=== PATIENT | male | born 1940 | race Hispanic/Latino ===

== ENCOUNTER 2018-06-17 16:55 | Inpatient (IN) | payer OTHER ==
[~2018-06-17] VITALS: Ht 188 cm; Wt 88.8 kg
[~2018-06-17 16:55] MED LIST: BACL10TA PO; Simethicone PO
[2018-06-17] MEDS ORDERED: ONDANSETRON HCL 4 MG/2 ML VIAL ONE ×2 (17:23→20:06)
[2018-06-17] MEDS ORDERED: SODIUM CHLORIDE 0.9% 1000ML 1,000 ML IV ONE (17:24)
[2018-06-17 17:27] LABS: BASOPHILS % (AUTO) 0.3 % (0.0-5.0); EOSINOPHILS % (AUTO) 1.3 % (0.0-8.0); HEMATOCRIT 48.1 % (42-54); LYMPHOCYTES % (AUTO) 13.2 % (21.0-51.0); MEAN CORPUSCULAR VOLUME 93.9 fL (79-99); MONOCYTES % (AUTO) 8.7 % (3.0-13.0); NEUTROPHILS % (AUTO) 76.5 % (40.0-77.0); NUCLEATED RED BLOOD CELLS 0.1 % (0.0-0.19); PLATELET COUNT (AUTO) 141 K/uL (130-400); RED BLOOD CELL COUNT(AUTO) 5.13 MIL/uL (4.50-6.20); RED CELL DISTRIBUTION WIDTH 13.7 % (11.0-15.5); WHITE BLOOD COUNT (AUTO) 11.3 K/uL (4.8-10.8)
[2018-06-17 17:36] LABS: CREATININE 1.3 mg/dL (0.5-1.5); POTASSIUM 4.5 mmol/L (3.5-5.1)
[2018-06-17 17:40] LABS: ALBUMIN 4.1 g/dL (3.5-5.0); BILIRUBIN,TOTAL 0.7 mg/dL (0.2-1.0)
[2018-06-17] MEDS ORDERED: IOHEXOL-350 75 ML VIAL IV ONE (18:27)
[2018-06-17] MEDS: SODIUM CHLORIDE 0.9% 1000ML 1,000 ML IV SCH (19:59)
[2018-06-17] MEDS ORDERED: ACETAMINOPHEN 650 MG SUPPOSITORY RC PRN (20:00)
[2018-06-17] MEDS ORDERED: ONDANSETRON HCL 4 MG/2 ML VIAL IV PRN (20:00)
[2018-06-17] MEDS ORDERED: MORPHINE SULFATE 4 MG/1ML SYG ONE (20:06)
[2018-06-17 20:24] LABS: APPEARANCE,URINE Clear (CLEAR); BILIRUBIN,URINE Negative (NEGATIVE); COLOR,URINE Yellow (YELLOW); GLUCOSE, URINE (UA) Negative (NEGATIVE); KETONES,URINE Negative (NEGATIVE); LEUKOCYTE ESTERASE ,URINE Negative (NEGATIVE); NITRATE,URINE Negative (NEGATIVE); OCCULT BLOOD,URINE Negative (NEGATIVE); PROTEIN,URINE Negative (NEGATIVE)
[2018-06-17] MEDS ORDERED: BENZOCAINE/MENTH/CETYLPYRD CL 1 EACH LOZENGE MM PRN (21:15)
[2018-06-17] MEDS ORDERED: LIDOCAINE HCL 2% VISCOUS 15 ML UDCUP ONE (23:11)
[2018-06-18 01:21] VITALS: BP 140/65
[2018-06-18 04:28] LABS: BASOPHILS % (AUTO) 0.4 % (0.0-5.0); EOSINOPHILS % (AUTO) 1.3 % (0.0-8.0); HEMATOCRIT 39.7 % (42-54); LYMPHOCYTES % (AUTO) 16.7 % (21.0-51.0); MEAN CORPUSCULAR HEMOGLOBIN 31.9 pg (27.0-33.0); MEAN CORPUSCULAR HGB CONC 33.5 g/dL (32.0-36.0); MEAN CORPUSCULAR VOLUME 95.1 fL (79-99); MONOCYTES % (AUTO) 12.5 % (3.0-13.0); NEUTROPHILS % (AUTO) 69.1 % (40.0-77.0); NUCLEATED RED BLOOD CELLS 0.1 % (0.0-0.19); PLATELET COUNT (AUTO) 116 K/uL (130-400); RED BLOOD CELL COUNT(AUTO) 4.17 MIL/uL (4.50-6.20); RED CELL DISTRIBUTION WIDTH 13.8 % (11.0-15.5); WHITE BLOOD COUNT (AUTO) 8.2 K/uL (4.8-10.8)
[2018-06-18 04:43] LABS: INR 1.01 (0.85-1.15); PARTIAL THROMBOPLASTIN TIME 28.2 SEC (26.3-35.5); PROTHROMBIN TIME 10.6 SEC (9.6-11.6)
[2018-06-18 04:48] VITALS: BP 130/88
[2018-06-18 04:49] LABS: ALBUMIN 3.1 g/dL (3.5-5.0); BILIRUBIN,TOTAL 0.8 mg/dL (0.2-1.0); CREATININE 1.1 mg/dL (0.5-1.5); POTASSIUM 4.3 mmol/L (3.5-5.1); TOTAL PROTEIN, SERUM 6.3 g/dL (6.0-8.3)
[2018-06-18] MEDS: SODIUM CHLORIDE 0.9% 1000ML 1,000 ML IV SCH ×2 (06:17→15:59)
[2018-06-18 08:00] VITALS: BP 124/71
[2018-06-18] MEDS: FAMOTIDINE/PF 20 MG/2 ML VIAL IV SCH (08:26)
[2018-06-18 11:00] VITALS: BP 119/73
[2018-06-18] MEDS ORDERED: MORPHINE SULFATE 2 MG/ML 1ML SYG IM PRN (11:30)
[2018-06-18] MEDS ORDERED: CHLORHEXIDINE GLUCONATE 473 ML MOUTHWASH MM PRN (11:30)
[2018-06-18] MEDS ORDERED: ONDANSETRON HCL MDV 20ML 2 MG/ML VIAL IVP PRN (11:30)
[2018-06-18] MEDS ORDERED: HYDR12.54 PO (11:41)
[2018-06-18] MEDS ORDERED: METO-391 PO (11:41)
[2018-06-18] MEDS ORDERED: TYL3 PO (11:41)
[2018-06-18] MEDS ORDERED: MORPHINE SULFATE 2 MG/ML 1ML SYG ONE (11:47)
[2018-06-18 16:10] VITALS: BP 133/72
--- NOTE | 2018-06-18 18:00 | NUR ---
MD [place] PATIENT AWAKE AND ALERT SITTING UP TO CHAIR. VISITED WITH PATIENT. POC DISCUSSED. NEW ORDERS RECEIVED TO DISCONTINUE NGT AND START ON CLEAR LIQUID DIET. ORDERS RECEIVED AND CARRIED OUT. PATIENT TOLERATED WELL. NO COMPLAINTS OF PAIN VOICED AT THIS TIME. VITALS STABLE. AFEBRILE. TOLERATING IVF WELL. NO NAUSEA OR VOMITING NOTED. UP AD SAMMI. FAMILY AT BEDSIDE. CALL LIGHT WITHIN REACH. WILL CONTINUE TO BE OBSERVED. Addendum: 06/18/18 at 1853 by VALERI WRAY RN RN Amended: Links added.
--- NOTE | 2018-06-18 18:30 | NUR ---
ROB PT , DAUGHTER A BEDSIDE, AAOX 3, ENG SPEAKING, LIVES ALONE, HAS ZULEMA BURRIS, NO DME NEEDED, IND OF ADLS, HERE FOR SBO , RECURRENT PROBLEM, ANTICIPATE DC IN AM Addendum: 06/18/18 at 1850 by JEN FERNANDEZ RN CM Amended: Links added.
[2018-06-18 21:31] VITALS: BP 118/78
[2018-06-19 00:59] VITALS: BP 122/80
[2018-06-19 04:41] VITALS: BP 146/76
[2018-06-19 04:59] LABS: POTASSIUM 3.9 mmol/L (3.5-5.1)
[2018-06-19] MEDS: SODIUM CHLORIDE 0.9% 1000ML 1,000 ML IV SCH ×2 (05:42→23:10)
[2018-06-19 05:54] LABS: BASOPHILS % (AUTO) 0.5 % (0.0-5.0); HEMATOCRIT 34.6 % (42-54); LYMPHOCYTES % (AUTO) 26.6 % (21.0-51.0); MEAN CORPUSCULAR HEMOGLOBIN 31.7 pg (27.0-33.0); MEAN CORPUSCULAR HGB CONC 33.6 g/dL (32.0-36.0); MEAN CORPUSCULAR VOLUME 94.4 fL (79-99); NEUTROPHILS % (AUTO) 54.9 % (40.0-77.0); PLATELET COUNT (AUTO) 112 K/uL (130-400); RED BLOOD CELL COUNT(AUTO) 3.66 MIL/uL (4.50-6.20); RED CELL DISTRIBUTION WIDTH 13.8 % (11.0-15.5); WHITE BLOOD COUNT (AUTO) 5.6 K/uL (4.8-10.8)
[2018-06-19 08:00] VITALS: BP 126/78
[2018-06-19] MEDS: FAMOTIDINE/PF 20 MG/2 ML VIAL IV SCH (08:38)
[2018-06-19 12:04] VITALS: BP 136/65
[2018-06-19 16:00] VITALS: BP 154/82
[2018-06-19 21:30] VITALS: BP 153/74
[2018-06-20 00:08] VITALS: BP 151/83
[2018-06-20 04:44] LABS: HEMATOCRIT 36.1 % (42-54); MEAN CORPUSCULAR HEMOGLOBIN 31.7 pg (27.0-33.0); MEAN CORPUSCULAR HGB CONC 33.6 g/dL (32.0-36.0); MEAN CORPUSCULAR VOLUME 94.3 fL (79-99); NUCLEATED RED BLOOD CELLS 0.1 % (0.0-0.19); PLATELET COUNT (AUTO) 105 K/uL (130-400); RED BLOOD CELL COUNT(AUTO) 3.83 MIL/uL (4.50-6.20); RED CELL DISTRIBUTION WIDTH 13.8 % (11.0-15.5); WHITE BLOOD COUNT (AUTO) 4.5 K/uL (4.8-10.8)
[2018-06-20 04:58] LABS: POTASSIUM 3.9 mmol/L (3.5-5.1)
[2018-06-20 06:02] VITALS: BP 144/73
--- NOTE | 2018-06-20 07:40 | NUR ---
NOTE AAOX3. DENIES PAIN OR DISCOMFORT. NO DISTRESS OR SOB. UP TO CHAIR EATING BREAKFAST. NO N/V NO ABDOMINAL DISCOMFORT. BOWEL SOUNDS PRESENT TO ALL QUADRANTS. HAS BEEN HAVING BM'S AND PASSING GAS. CAME IN WITH ABDOMINAL PAIN AND SBO. CONSERVATIVE TREATMENT FOLLOWED HAD NGT AND WAS DC'D STARTED ON CLD AND ADVANCED TO SOFT THIS AM. POSSIBLE DC HOME TODAY. VERY PLEASANT PATIENT VERY OPTIMISTIC. HAS HAD THIS PROBLEM BEFORE AND KNOWS HE IS GETTING BETTER.
[2018-06-20] MEDS: FAMOTIDINE/PF 20 MG/2 ML VIAL IV SCH (07:47)
[2018-06-20 08:00] VITALS: BP 102/69
--- NOTE | 2018-06-20 10:00 | NUR ---
DISCHARGE DISCHARGE INSTRUCTIONS GIVEN TO PATIENT AND DAUGHTER REFER TO DC SUMMARY FOR DETAILS. STABLE. CHECKED WITH SURGERY AND THEY CLEARED TO GO HOME, NO FOLLOW UP NEEDED.
== END 2018-06-20 12:00 | disposition home or self-care (01) | DRG 390 ==
LOC: EDH 16:55 → EDHIP 20:00 → 4CH 06-18 00:29
PROVIDERS: ADMIT Internal Medicine; ATTEND Internal Medicine
PROC: 0D9670Z Drainage of Stomach with Drainage Device, Via Natural or Artificial Opening (ICD-10-PCS; principal; 2018-06-17)
DX: K56.609 Unspecified intestinal obstruction, unspecified as to partial versus complete obstruction (principal); I25.10 Atherosclerotic heart disease of native coronary artery without angina pectoris; I10 Essential (primary) hypertension; K31.89 Other diseases of stomach and duodenum; K57.90 Diverticulosis of intestine, part unspecified, without perforation or abscess without bleeding; M19.90 Unspecified osteoarthritis, unspecified site; Z90.49 Acquired absence of other specified parts of digestive tract; Z91.012 Allergy to eggs; Z82.3 Family history of stroke; Z82.0 Family history of epilepsy and other diseases of the nervous system; Z82.5 Family history of asthma and other chronic lower respiratory diseases; Z82.49 Family history of ischemic heart disease and other diseases of the circulatory system; Z83.3 Family history of diabetes mellitus; Z80.41 Family history of malignant neoplasm of ovary
CPT/HCPCS: 36415; 74177; 80048; 80053; 81003; 83690; 84484; 85025; 85027; 85610; 85730; 93005; G0378; J2270; J2405; J3490; J7030; Q9967

== ENCOUNTER 2019-10-16 19:06 | Emergency (ER) | payer OTHER ==
[~2019-10-16 19:06] MED LIST changes: -BACL10TA PO; +HYDR12.54 PO; +METO-391 PO; -Simethicone PO; +TYL3 PO
[2019-10-16 19:36] LABS: BASOPHILS % (AUTO) 0.4 % (0.0-5.0); EOSINOPHILS % (AUTO) 2.5 % (0.0-8.0); HEMATOCRIT 39.7 % (42-54); LYMPHOCYTES % (AUTO) 22.7 % (21.0-51.0); MEAN CORPUSCULAR VOLUME 93.9 fL (79-99); MONOCYTES % (AUTO) 13.9 % (3.0-13.0); NEUTROPHILS % (AUTO) 60.2 % (40.0-77.0); PLATELET COUNT (AUTO) 114 K/uL (130-400); RED BLOOD CELL COUNT(AUTO) 4.23 MIL/uL (4.50-6.20); RED CELL DISTRIBUTION WIDTH 13.3 % (11.0-15.5); WHITE BLOOD COUNT (AUTO) 6.7 K/uL (4.8-10.8)
[2019-10-16 19:45] LABS: CARBON DIOXIDE 30 mmol/L (21-32); CHLORIDE 102 mmol/L (101-111); CREATININE 1.1 mg/dL (0.5-1.5); GLOMERULAR FILTR. RATE CALC 68 mL/min (>60); GLUCOSE,RANDOM 91 mg/dL (70-105); POTASSIUM 3.9 mmol/L (3.5-5.1); SODIUM SERUM 137 mmol/L (136-145); UREA NITROGEN, BLOOD 29 mg/dL (7-18)
[2019-10-16 19:47] LABS: INR 0.94 (0.85-1.15); PARTIAL THROMBOPLASTIN TIME 25.5 SEC (26.3-35.5); PROTHROMBIN TIME 10.2 SEC (9.6-11.6)
[2019-10-16 19:49] LABS: ALANINE AMINOTRANSFERASE 22 U/L (12-78); ALBUMIN 3.9 g/dL (3.5-5.0); ALCOHOL, BLOOD < 3 mg/dL (0-10); ASPARTATE AMINOTRANSFERASE 34 U/L (10-37); BILIRUBIN,TOTAL 0.4 mg/dL (0.2-1.0); TOTAL PROTEIN, SERUM 7.1 g/dL (6.0-8.3)
[2019-10-16] MEDS ORDERED: MORPHINE SULFATE 4 MG/1ML SYG ONE (20:25)
[2019-10-16] MEDS ORDERED: ONDANSETRON HCL 4 MG/2 ML VIAL ONE (20:25)
[2019-10-16] MEDS ORDERED: IOHEXOL-350 75 ML VIAL IV ONE (20:32)
[2019-10-16 21:50] LABS: APPEARANCE,URINE Clear (CLEAR); BILIRUBIN,URINE Negative (NEGATIVE); COLOR,URINE Yellow (YELLOW); GLUCOSE, URINE (UA) Negative (NEGATIVE); KETONES,URINE Negative (NEGATIVE); LEUKOCYTE ESTERASE ,URINE Negative (NEGATIVE); NITRATE,URINE Negative (NEGATIVE); OCCULT BLOOD,URINE Negative (NEGATIVE); PROTEIN,URINE Negative (NEGATIVE)
== END 2019-10-16 22:49 | disposition home or self-care (01) ==
LOC: EDH 19:06
DX: M79.81 Nontraumatic hematoma of soft tissue (principal); S09.90XA Unspecified injury of head, initial encounter; M54.9 Dorsalgia, unspecified; M19.90 Unspecified osteoarthritis, unspecified site; I10 Essential (primary) hypertension; I25.10 Atherosclerotic heart disease of native coronary artery without angina pectoris; Z90.49 Acquired absence of other specified parts of digestive tract; X58.XXXA Exposure to other specified factors, initial encounter; Y93.89 Activity, other specified; Y92.098 Other place in other non-institutional residence as the place of occurrence of the external cause; Y99.8 Other external cause status
CPT/HCPCS: 36415; 70450; 72125; 72128; 72131; 73090; 74177; 80053; 81003; 85025; 85610; 85730; 93005; 96374; 96375; 99285; G0480; J2270; J2405; Q9967

== ENCOUNTER 2020-10-03 03:59 | Observation (INO) | payer OTHER ==
[~2020-10-03] VITALS: Ht 185.4 cm; Wt 90.7 kg
[2020-10-03] MEDS ORDERED: ONDANSETRON 4MG INJ ONE (04:08)
[2020-10-03] MEDS ORDERED: MORPHINE 4 MG SYG ONE (04:20)
[2020-10-03 04:31] LABS: BASOPHILS % (AUTO) 0.2 % (0.0-5.0); EOSINOPHILS % (AUTO) 0.2 % (0.0-8.0); HEMATOCRIT 42.8 % (42-54); LYMPHOCYTES % (AUTO) 6.4 % (21.0-51.0); MEAN CORPUSCULAR HEMOGLOBIN 31.7 pg (27.0-33.0); MEAN CORPUSCULAR HGB CONC 34.3 g/dL (32.0-36.0); MEAN CORPUSCULAR VOLUME 92.4 fL (79-99); MONOCYTES % (AUTO) 5.9 % (3.0-13.0); NEUTROPHILS % (AUTO) 86.9 % (40.0-77.0); PLATELET COUNT (AUTO) 212 K/uL (130-400); RED BLOOD CELL COUNT(AUTO) 4.63 MIL/uL (4.50-6.20); RED CELL DISTRIBUTION WIDTH 13.5 % (11.0-15.5); WHITE BLOOD COUNT (AUTO) 13.1 K/uL (4.8-10.8)
[2020-10-03 04:42] LABS: CREATININE 1.1 mg/dL (0.5-1.5); POTASSIUM 5.1 mmol/L (3.5-5.1)
[2020-10-03 04:46] LABS: BILIRUBIN,TOTAL 0.6 mg/dL (0.2-1.0)
[2020-10-03] MEDS ORDERED: NITROGLYCERIN 0.4 MG SL TAB SL PRN (06:15)
[2020-10-03] MEDS ORDERED: ACETAMINOPHEN 325 MG TAB PO PRN (06:15)
[2020-10-03] MEDS ORDERED: ONDANSETRON 4MG INJ IV PRN (06:15)
[2020-10-03] MEDS: 0.9%NACL 1000ML 1,000 ML IV SCH ×2 (06:15→17:25)
[2020-10-03] MEDS ORDERED: LABETALOL 20MG SYG IV PRN (06:30)
[2020-10-03] MEDS ORDERED: GLUCAGON 1MG KIT 1 MG ML IM PRN (06:30)
[2020-10-03] MEDS ORDERED: DEXTROSE 50%-WATER 50 ML DISP.SYRIN IV PRN (06:30)
[2020-10-03 08:05] LABS: APPEARANCE,URINE Clear (CLEAR); BILIRUBIN,URINE Negative (NEGATIVE); COLOR,URINE Dark Yellow (YELLOW); GLUCOSE, URINE (UA) Negative (NEGATIVE); KETONES,URINE Trace mg/dL (NEGATIVE); LEUKOCYTE ESTERASE ,URINE Negative (NEGATIVE); NITRATE,URINE Negative (NEGATIVE); OCCULT BLOOD,URINE Negative (NEGATIVE); PROTEIN,URINE Negative (NEGATIVE); UROBILINOGEN,URINE 0.2 mg/dL (0.2-1.0)
[2020-10-03 08:20] LABS: BACTERIA,URINE Rare /HPF (None Seen); RBC,URINE 0-1 /HPF (0-1); SQUAMOUS EPITHELIAL CELL,UR Rare /HPF (0-2); WBC,URINE 0-1 /HPF (0-1)
[2020-10-03 08:30] VITALS: BP 135/80
[2020-10-03] MEDS: MORPHINE 2 MG SYG IVP PRN ×2 (09:09→18:02)
[2020-10-03 12:00] VITALS: BP 126/82
[2020-10-03] MEDS: INSULIN HUMULIN R 100 UNIT/ML 3ML SQ SCH ×2 (12:00→17:26)
[2020-10-03] MEDS: PANTOPRAZOLE 40 MG/VIAL IVP SCH ×2 (12:03→16:10)
[2020-10-03] MEDS: METOCLOPRAMIDE 10 MG/2 ML VIAL IVP SCH ×2 (12:03→17:25)
[2020-10-03] MEDS: METOPROLOL SUCCINATE 50 MG TAB.SR.24H PO SCH (12:04)
[2020-10-03] MEDS: HYDROCHLOROTHIAZIDE 25 MG TABLET PO SCH (12:04)
[2020-10-03 16:00] VITALS: BP 119/73
[2020-10-03] MEDS ORDERED: LACTULOSE 20 GM/30 ML UDCUP PO PRN (20:00)
[2020-10-03 20:20] VITALS: BP 131/78
[2020-10-03] MEDS: ENOXAPARIN SODIUM 30 MG/0.3 ML SQ SCH (20:31)
[2020-10-04 00:24] VITALS: BP 129/79
[2020-10-04] MEDS: MORPHINE 2 MG SYG IVP PRN (01:00)
[2020-10-04] MEDS: 0.9%NACL 1000ML 1,000 ML IV SCH ×2 (02:15→12:15)
[2020-10-04 04:05] LABS: HEMATOCRIT 36.6 % (42-54); MEAN CORPUSCULAR HEMOGLOBIN 30.8 pg (27.0-33.0); MEAN CORPUSCULAR HGB CONC 32.8 g/dL (32.0-36.0); MEAN CORPUSCULAR VOLUME 94.1 fL (79-99); RED BLOOD CELL COUNT(AUTO) 3.89 MIL/uL (4.50-6.20); RED CELL DISTRIBUTION WIDTH 13.7 % (11.0-15.5); WHITE BLOOD COUNT (AUTO) 7.9 K/uL (4.8-10.8)
[2020-10-04 04:19] LABS: CREATININE 1.1 mg/dL (0.5-1.5); POTASSIUM 3.7 mmol/L (3.5-5.1)
[2020-10-04 04:24] VITALS: BP 141/78
[2020-10-04] MEDS: INSULIN HUMULIN R 100 UNIT/ML 3ML SQ SCH ×4 (06:00→16:30)
[2020-10-04] MEDS: METOCLOPRAMIDE 10 MG/2 ML VIAL IVP SCH (06:17)
[2020-10-04 08:00] VITALS: BP 125/76
[2020-10-04] MEDS: METOPROLOL SUCCINATE 50 MG TAB.SR.24H PO SCH (09:31)
[2020-10-04] MEDS: HYDROCHLOROTHIAZIDE 25 MG TABLET PO SCH (09:31)
[2020-10-04] MEDS: ENOXAPARIN SODIUM 30 MG/0.3 ML SQ SCH (09:33)
[2020-10-04] MEDS ORDERED: ZOSYN 3.375GM+NS 50ML 50 ML IV SCH ×2 (09:45→15:00)
[2020-10-04 11:47] VITALS: BP 103/72
[2020-10-04] MEDS ORDERED: AMOX-426 PO (14:01)
[2020-10-04] MEDS ORDERED: DOCU-116 PO (14:04)
[2020-10-04 16:00] VITALS: BP 122/70
== END 2020-10-04 19:00 | disposition home or self-care (01) ==
LOC: EDH 03:59 → EDHIP 06:08 → 3CH 07:46
PROVIDERS: ADMIT Internal Medicine Pulmonary Disease; ATTEND Internal Medicine Pulmonary Disease
DX: K40.90 Unilateral inguinal hernia, without obstruction or gangrene, not specified as recurrent (principal); K56.600 Partial intestinal obstruction, unspecified as to cause; K57.30 Diverticulosis of large intestine without perforation or abscess without bleeding; M19.90 Unspecified osteoarthritis, unspecified site; I25.10 Atherosclerotic heart disease of native coronary artery without angina pectoris; I10 Essential (primary) hypertension; Z90.49 Acquired absence of other specified parts of digestive tract; Z79.899 Other long term (current) drug therapy; Z91.012 Allergy to eggs
CPT/HCPCS: 36415 ×2; 43752; 74176; 80048; 80053; 81001; 82948 ×3; 83690; 83880; 84484; 85025; 85027; 93005; 96361 ×2; 96365; 96366; 96372 ×2; 96375; 96376 ×2; 99285; C9113 ×2; G0378 ×36; J1650 ×2; J2270; J2405; J2543; J2765 ×3

== ENCOUNTER → 2022-01-26 | Outpatient (CLI) | payer OTHER ==
[~2022-01-26] MED LIST changes: +AMOX-426 PO; +DOCU-116 PO
== END | disposition home or self-care (01) ==
LOC: RAH 11:49
PROVIDERS: ATTEND Family Medicine
DX: M19.012 Primary osteoarthritis, left shoulder (principal); M25.512 Pain in left shoulder; Z98.890 Other specified postprocedural states; W19.XXXA Unspecified fall, initial encounter; Y93.89 Activity, other specified; Y92.89 Other specified places as the place of occurrence of the external cause; Y99.8 Other external cause status
CPT/HCPCS: 73010; 73030

== ENCOUNTER 2023-10-19 09:38 | Inpatient (IN) | payer OTHER ==
[~2023-10-19] VITALS: Ht 185.4 cm; Wt 89.4 kg
[2023-10-19 10:04] LABS: BASOPHILS # (AUTO) 0.02 K/uL (0.00-0.20); BASOPHILS % (AUTO) 0.2 % (0.0-5.0); EOSINOPHILS # (AUTO) 0.04 K/uL (0.00-0.70); EOSINOPHILS % (AUTO) 0.4 % (0.0-8.0); HEMATOCRIT 45.6 % (42-54); IMMATURE GRANULOCYTE ABSOLUTE 0.04 K/uL (0-1); LYMPHOCYTES # (AUTO) 1.8 K/uL (1.0-4.8); LYMPHOCYTES % (AUTO) 16.5 % (21.0-51.0); MEAN CORPUSCULAR HEMOGLOBIN 31.4 pg (27.0-33.0); MEAN CORPUSCULAR VOLUME 92.3 fL (79-99); MONOCYTES # (AUTO) 1.3 K/uL (0.1-1.0); MONOCYTES % (AUTO) 11.9 % (3.0-13.0); NEUTROPHILS # (AUTO) 7.7 K/uL (1.8-7.7); NEUTROPHILS % (AUTO) 70.6 % (40.0-77.0); PLATELET COUNT (AUTO) 147 K/uL (130-400); RED BLOOD CELL COUNT(AUTO) 4.94 MIL/uL (4.50-6.20); RED CELL DISTRIBUTION WIDTH 13.5 % (11.0-15.5); WHITE BLOOD COUNT (AUTO) 10.9 K/uL (4.8-10.8)
[2023-10-19 10:18] LABS: CREATININE 1.3 mg/dL (0.5-1.3); POTASSIUM 4.1 mmol/L (3.5-5.1)
[2023-10-19] MEDS: PANTOPRAZOLE 40 MG/VIAL IVP ONE (10:40)
[2023-10-19] MEDS: LACTATED RINGERS 1000ML 1,000 ML IV ONE (10:40)
[2023-10-19] MEDS: ONDANSETRON 4MG INJ IVP ONE (10:41)
[2023-10-19] MEDS ORDERED: NITROGLYCERIN 0.4 MG SL TAB SL PRN (12:30)
[2023-10-19] MEDS ORDERED: GUAIFENESIN SUGAR-FREE 100 MG/5 ML UDCUP PO PRN (12:30)
[2023-10-19] MEDS ORDERED: POLYETHYLENE GLYCOL 3350 17 GM POWD.PACK PO PRN (12:30)
[2023-10-19] MEDS ORDERED: GUAIFENESIN-DM 200/20 MG 10 ML PO PRN (12:30)
[2023-10-19] MEDS ORDERED: POTASSIUM CHLORIDE 20MEQ/100ML 100 ML IV PRN ×2 (12:30)
[2023-10-19] MEDS ORDERED: DiphenhydrAMINE HCL 50 MG/ML VIAL IV PRN (12:30)
[2023-10-19] MEDS ORDERED: DOCUSATE SODIUM 100 MG CAP PO PRN (12:30)
[2023-10-19] MEDS ORDERED: ONDANSETRON 4MG INJ IV PRN (12:30)
[2023-10-19] MEDS ORDERED: ZOLPIDEM TARTRATE 5 MG TAB PO PRN (12:30)
[2023-10-19] MEDS ORDERED: DIPHENHYDRAMINE HCL 25 MG CAPSULE PO PRN (12:30)
[2023-10-19] MEDS: 0.9%NACL 1000ML 1,000 ML IV SCH (13:08)
[2023-10-19] MEDS: METOCLOPRAMIDE 10 MG/2 ML VIAL IVP SCH (13:08)
[2023-10-19 15:05] VITALS: BP 185/91; PULSE 100; RESP 19
[2023-10-19 15:30] VITALS: O2SAT 99
[2023-10-19] MEDS ORDERED: HYDR25TA PO (15:50)
[2023-10-19] MEDS ORDERED: GLUC-29 PO (15:50)
[2023-10-19] MEDS ORDERED: HYDRALAZINE 20MG/ML VIAL IV PRN (16:00)
[2023-10-19] MEDS: HYDROMORPHONE 0.5 MG SYG (0.5MG/0.5ML) IVP PRN (16:10)
[2023-10-19 16:15] VITALS: BP 173/91; PULSE 94
[2023-10-19] MEDS: METOPROLOL TARTRATE 1 MG/ML 5ML VIAL IV SCH (16:18)
[2023-10-19] MEDS: INSULIN HUMULIN R 100 UNIT/ML 3ML SQ SCH (18:00)
[2023-10-19 19:30] VITALS: O2SAT 99
[2023-10-19] MEDS: FAMOTIDINE 20MG VIAL IV SCH (19:41)
[2023-10-19 20:00] VITALS: BP 159/79; PULSE 84; RESP 20
[2023-10-20] VITALS (8 sets, daily range): BP systolic 110–153; BP diastolic 68–95; PULSE 69–101; RESP 18–20; O2SAT 96
[2023-10-20] MEDS: MAGNESIUM HYDROXIDE 30 ML/UDCUP PO SCH (18:00)
[2023-10-20] MEDS: BISACODYL 10 MG SUPP.RECT RC ONE (18:45)
[2023-10-20] MEDS: LACTULOSE 20 GM/30 ML UDCUP PO ONE (18:45)
[2023-10-20] MEDS: INSULIN HUMULIN R 100 UNIT/ML 3ML SQ SCH (21:30)
[2023-10-20] MEDS: ACETAMINOPHEN 325 MG TAB PO PRN (22:49)
[2023-10-21] VITALS (8 sets, daily range): BP systolic 133–146; BP diastolic 72–96; PULSE 74–124; RESP 17–20; O2SAT 96–97
[2023-10-21 04:51] LABS: BASOPHILS # (AUTO) 0.01 K/uL (0.00-0.20); BASOPHILS % (AUTO) 0.1 % (0.0-5.0); EOSINOPHILS # (AUTO) 0.08 K/uL (0.00-0.70); HEMATOCRIT 40.3 % (42-54); IMMATURE GRANULOCYTE ABSOLUTE 0.03 K/uL (0-1); LYMPHOCYTES # (AUTO) 1.4 K/uL (1.0-4.8); MEAN CORPUSCULAR HEMOGLOBIN 31.2 pg (27.0-33.0); MEAN CORPUSCULAR HGB CONC 33.3 g/dL (32.0-36.0); MEAN CORPUSCULAR VOLUME 93.9 fL (79-99); MONOCYTES # (AUTO) 1.3 K/uL (0.1-1.0); MONOCYTES % (AUTO) 15.3 % (3.0-13.0); NEUTROPHILS # (AUTO) 5.6 K/uL (1.8-7.7); NEUTROPHILS % (AUTO) 66.2 % (40.0-77.0); PLATELET COUNT (AUTO) 119 K/uL (130-400); RED BLOOD CELL COUNT(AUTO) 4.29 MIL/uL (4.50-6.20); RED CELL DISTRIBUTION WIDTH 13.2 % (11.0-15.5); WHITE BLOOD COUNT (AUTO) 8.4 K/uL (4.8-10.8)
[2023-10-21 05:11] LABS: CREATININE 0.9 mg/dL (0.5-1.3); MAGNESIUM 1.5 mg/dL (1.80-2.40); PHOSPHORUS 2.4 mg/dL (2.5-4.9); POTASSIUM 3.3 mmol/L (3.5-5.1)
[2023-10-21] MEDS: MAGNESIUM 2GM PREMIX 50ML 50 ML IV PRN (05:40)
[2023-10-21] MEDS: METOPROLOL TARTRATE 1 MG/ML 5ML VIAL IV ONE (05:40)
[2023-10-21] MEDS: LACTULOSE 20 GM/30 ML UDCUP PO PRN (09:18)
[2023-10-21] MEDS: MAG/ALUM/SIMETH 30 ML UDCUP PO PRN (09:18)
[2023-10-21] MEDS: BISACODYL 10 MG SUPP.RECT RC ONE (13:17)
[2023-10-21] MEDS: POTASSIUM CHLORIDE 10% ELIXIR 20 MEQ/15 ML UDCUP PO PRN (13:21)
[2023-10-21] MEDS: ACETAMINOPHEN 325 MG TAB PO PRN (23:44)
[2023-10-22 00:03] VITALS: BP 152/86; PULSE 76; RESP 20
[2023-10-22 03:56] VITALS: BP 152/95; PULSE 67; RESP 17
[2023-10-22 04:38] LABS: BASOPHILS # (AUTO) 0.03 K/uL (0.00-0.20); BASOPHILS % (AUTO) 0.5 % (0.0-5.0); EOSINOPHILS # (AUTO) 0.14 K/uL (0.00-0.70); EOSINOPHILS % (AUTO) 2.1 % (0.0-8.0); HEMATOCRIT 35.1 % (42-54); IMMATURE GRANULOCYTE ABSOLUTE 0.03 K/uL (0-1); LYMPHOCYTES # (AUTO) 1.6 K/uL (1.0-4.8); LYMPHOCYTES % (AUTO) 23.7 % (21.0-51.0); MEAN CORPUSCULAR HEMOGLOBIN 32.2 pg (27.0-33.0); MEAN CORPUSCULAR HGB CONC 34.2 g/dL (32.0-36.0); MEAN CORPUSCULAR VOLUME 94.1 fL (79-99); MONOCYTES # (AUTO) 1.1 K/uL (0.1-1.0); MONOCYTES % (AUTO) 16.8 % (3.0-13.0); NEUTROPHILS # (AUTO) 3.7 K/uL (1.8-7.7); NEUTROPHILS % (AUTO) 56.4 % (40.0-77.0); PLATELET COUNT (AUTO) 104 K/uL (130-400); RED BLOOD CELL COUNT(AUTO) 3.73 MIL/uL (4.50-6.20); RED CELL DISTRIBUTION WIDTH 13.1 % (11.0-15.5); WHITE BLOOD COUNT (AUTO) 6.6 K/uL (4.8-10.8)
[2023-10-22 04:42] LABS: ALBUMIN 2.8 g/dL (3.5-5.0); BILIRUBIN,TOTAL 0.7 mg/dL (0.2-1.0); CREATININE 0.8 mg/dL (0.5-1.3); MAGNESIUM 2.1 mg/dL (1.80-2.40); PHOSPHORUS 2.2 mg/dL (2.5-4.9); POTASSIUM 3.4 mmol/L (3.5-5.1); TOTAL PROTEIN, SERUM 5.8 g/dL (6.0-8.3)
[2023-10-22] MEDS: KCL 20 MEQ ERTAB PO PRN (05:10)
[2023-10-22 08:00] VITALS: BP 133/77; PULSE 84; RESP 16; O2SAT 97
[2023-10-22] MEDS: HYDROCHLOROTHIAZIDE 25 MG TABLET PO SCH (09:06)
[2023-10-22] MEDS: GLUCOSAMINE-CHONDROITIN PO SCH (09:06)
[2023-10-22] MEDS: METOPROLOL SUCCINATE 50 MG TAB.SR.24H PO SCH (09:06)
[2023-10-22] MEDS ORDERED: POLY17PO4 PO (09:39)
== END 2023-10-22 11:05 | disposition home or self-care (01) | DRG 389 ==
LOC: EDH 09:38 → EDHIP 12:04 → 4CH 15:03
PROVIDERS: ADMIT Internal Medicine Critical Care Medicine; ATTEND Internal Medicine Critical Care Medicine
PROC: 0D9670Z Drainage of Stomach with Drainage Device, Via Natural or Artificial Opening (ICD-10-PCS; principal; 2023-10-20)
DX: K56.600 Partial intestinal obstruction, unspecified as to cause (principal); N17.9 Acute kidney failure, unspecified; E86.1 Hypovolemia; D69.6 Thrombocytopenia, unspecified; D72.829 Elevated white blood cell count, unspecified; E78.5 Hyperlipidemia, unspecified; I10 Essential (primary) hypertension; I25.10 Atherosclerotic heart disease of native coronary artery without angina pectoris; R73.03 Prediabetes; Z63.4 Disappearance and death of family member; Z90.49 Acquired absence of other specified parts of digestive tract; Z79.899 Other long term (current) drug therapy
CPT/HCPCS: 36415; 71045; 74018; 74176; 80048; 80053; 82550; 82948; 83690; 83735; 84100; 84484; 85025; 93005; 96374; 96375; 99291; C9113; G0378; J0360; J1170; J2405; J2765; J3475; J3490; J7030; J7120